=== PATIENT | female | born 1985 | race Caucasian/White ===

== ENCOUNTER 2016-09-25 09:51 | Emergency (ER) | payer OTHER ==
[~2016-09-25] VITALS: Ht 175.3 cm; Wt 183.5 kg
[~2016-09-25 09:51] MED LIST: FLEXERIL10 MG PO; LORTAB 5-325 M1 EACH PO; ONE DAILY WOME1 EACH PO; PREDNISONE10 MG PO; VALTREX1000 MG PO
[2016-09-25 09:53] VITALS: BP 138/88
[2016-09-25] MEDS ORDERED: KEFLEX500 MG PO (10:06)
[2016-09-25] MEDS ORDERED: BACTRIM,SEPT1 TABLET PO (10:06)
[2016-09-25] MEDS ORDERED: SUDAFED 12-HOU120 MG PO (10:12)
== END 2016-09-25 10:19 | disposition home or self-care (01) ==
LOC: EME 09:51
DX: L03.116 Cellulitis of left lower limb (principal); Z72.0 Tobacco use
CPT/HCPCS: 99281; 99283